=== PATIENT | female | born 1990 ===

== ENCOUNTER 2017-07-19 12:58 | Inpatient (IN) | payer MEDICAID ==
[2017-07-19] MEDS ORDERED: Lactated Ringer's 1,000 ML IV SCH (13:30)
[2017-07-19] MEDS ORDERED: Lidocaine 2% Inj (20ml) ONE (13:37)
[2017-07-19] MEDS ORDERED: Oxytocin 30 UNIT 1,000 ML IV SCH (14:00)
--- NOTE | 2017-07-19 14:08 | DELATT ---
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 no amniocentesis done Del Note Reason for Attend Other: trisomy 18?? Del Note Reason for Attending: Evaluation; Anomaly RAIMUNDO/NICU Del Atten Note Adm
[2017-07-19] MEDS ORDERED: Benzocaine/Menthol 20%-0.5% Topical Spray (60 ml) TOP PRN (14:10)
[2017-07-19 15:03] LABS: ALB/GLOB RATIO 1.1 (1.0-2.1); ALBUMIN 3.7 g/dL (3.5-5.0); ALT/SGPT 15 U/L (9-52); AST/SGOT 20 U/L (14-36); BLOOD UREA NITROGEN 9 mg/dL (7-17); CALCIUM 8.8 mg/dl (8.6-10.4); GFR AFRICAN-AMERICAN > 60; GFR NON-AFRICAN AMERICAN > 60
[2017-07-19 15:05] LABS: BASO % 0.2 % (0.0-2.0); EOS # 0.1 K/uL (0.0-0.7); EOS % 0.8 % (0.0-4.0); LYMPH # 1.5 K/uL (1.0-4.3); LYMPH % 21.5 % (20.0-40.0); MEAN CORPUSCULAR HGB CONC 33.6 g/dL (33.0-37.0); MEAN PLATELET VOLUME 12.6 fL (7.2-11.7); MONO # 0.4 K/uL (0.0-0.8); MONO % 5.7 % (0.0-10.0); NEUT % 71.8 % (50.0-75.0); NRBC % 0.1 % (0.0-2.0); RBC 4.22 Mil/uL (3.80-5.20)
[2017-07-19 15:08] LABS: HEMOGLOBIN 12.3 g/dL (11.0-16.0)
[2017-07-19 15:09] LABS: MEAN CELL VOLUME 86.3 fL (81.0-99.0)
--- NOTE | 2017-07-19 16:05 | OBADHP ---
Datetime: 07/19/2017 13:18 Admit Comment, IP Provider: 27 y/ @ 40.2 wks ga c/o ctx eveyr 5 min sinc elast night with in creaed presure. pt dnies an ylof, vb, +FM. 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: dneis hx of abnormla pa, fibroi, ovairna cyst, STI PMH:Anemia PSH: denies FHX: DM MEDS PNVS A?P @ 40+ wks in active labor admit npo, ivf admission labs cont toco and efm analgeis prn antica Pelvic Type - PN: Adequate Extremities - PN: Normal Abdomen - PN: Normal Back - PN: Normal Breast - PN: Normal Lungs - PN: Normal Heart - PN: Normal Thyroid - PN: Normal Neurologic - PN: Normal HEENT - PN: Normal General - PN: Normal Presentation-Admit: Vertex FHR - Baseline A Provider: 145 Membranes, Provider: Intact Contraction Comments Provider: a 4 min Gestation - Est Wks by US: 40.2 IP Chief Complaint: Uterine contractions NICHD Accel Fetus A IP Provider: [id number] NICHD Decel Fetus A IP Provider: None Dilatation, Provider: 9 Effacement, Provider: 90 Station, Provider: -2 Genitourinary Exam: Normal DTRs - PN: Normal EGA AdmitDate IP: 40.2 IP Adm Impression: Term, intrauterine IP Admit Plan: Admit to unit
--- NOTE | 2017-07-19 16:16 | OBDS ---
DELIVERY PERSONNEL Delivery Doctor: Syd Nolasco MD Scrub Nurse: Stefanie Fraga Hide Inspector And Sorter: Kirsten Arteaga RN MATERNAL INFORMATION Delivery Anesthesia: Local Medications in Delivery: Pitocin 20 units in 1000ml LR; Lidocaine 2% locally by Estimated Blood Loss (ml): 200 Placenta Cultured: Yes Maternal Complications: None RN Comments: Liveborn Baby Boy. 9-9 Provider Comments: pt was fully dilated and pushing, atraumtic, spontnaoud dlieeyr of head ,no nucha l cord noted. atrumatic, spontanoeus delive rof natiro followe by postleydi verdugo followed by delive katty of body. both oral and nasal passages of naa baby were bulb suctione.d ubmiccal cord clamped and c ut. baby hyanded to moather on abodmen. cord blood and cord gases collected and sent x 2. Spontaneous dleiver of intact placenta with membrnes. fundus firm. good hemsotiss, first degree perienal lacera tion noted and repaired with 2-0 chormic. good hemostis, no complicatins live male infant, apgrs 9,9 weight of 7lb 6 ounces peidiatirican prsent for delivery ebl 200 ml LABOR SUMMARY EDC: 07/17/2017 00:00 No. Babies in Womb: 1 Attempted: No Labor Anesthesia: None LABOR INFORMATION Reason for Induction: Not Applicable Onset of Labor: 07/19/2017 04:00 Complete Dilatation: 07/19/2017 13:24 Oxytocin: N/A Group B Beta Strep: Negative (Annotations: 06/24/17) Antibiotics # of Doses: 0 Antibiotics Time of Last Dose: 0 Steroids Given: None Reason Steroids Not Administered: Not Applicable MEMBRANES Membranes Rupture Method: Spontaneous Rupture of Membranes: 07/19/2017 13:13 Length of Rupture (hrs): 0.28 Amniotic Fluid Color: Clear Amniotic Fluid Amount: Moderate Amniotic Fluid Odor: Normal STAGES OF LABOR Stage 1 hrs: 9 Stage 1 min: 24 Stage 2 hrs: 0 Stage 2 min: 6 Stage 3 hrs: 0 Stage 3 min: 3 Total Time in Labor hrs: 9 Total Time in Labor min: 33 VAGINAL DELIVERY Episiotomy: None Laceration Extension: First Degree Laceration Type: Perineal Other Laceration: vaginal packing by Dr. Nolasco Laceration Repair: Yes Initial Vag Sponge Count: 10 Final Vag Sponge Count: 10 Initial Vag Sharps Count: 3 Final Vag Sharps Count: 3 Sponge Count Correct: Yes; Vaginal Sweep Performed Sharps Count Correct: Yes Count Comment: 2 suture needle;1 needle for drawing medication BABY A INFORMATION Delivery Date/Time: 07/19/2017 13:30 Method of Delivery: Vaginal Born in Route : No : N/A Forceps: N/A Vacuum Extraction: N/A Shoulder Dystocia : No SHOULDER DYSTOCIA BABY A Delivery Date/Time: 07/19/2017 13:30 PRESENTATION/POSITION BABY A Presentation: Cephalic Cephalic Presentation: Vertex Vertex Position: Right Occipital Anterior Breech Presentation: N/A PLACENTA INFORMATION BABY A Placenta Delivery Time : 07/19/2017 13:33 Placenta Method of Delivery: Spontaneous Placenta Status: Delivered SCORES BABY A Heart Rate 1 min: >100 bpm Resp Effort 1 min: Good Cry Reflex Irritability 1 min: Cough or Sneeze or Pulls Away Muscle Tone 1 min: Active Motion Color 1 min: Body Novelty, Extremities Blue Resuscitation Effort 1 min: N/A SCORE 1 MIN: 9 Heart Rate 5 min: >100 bpm Resp Effort 5 min: Good Cry Reflex Irritability 5 min: Cough or Sneeze or Pulls Away Muscle Tone 5 min: Active Motion Color 5 min: Body Novelty, Extremities Blue Resuscitation Effort 5 min: N/A SCORE 5 MIN: 9 INFANT INFORMATION BABY A Gestational Age at Delivery: 40.2 Gestational Status: Term Infant Outcome : Liveborn Infant Condition : Stable Sex: Male IDENTIFICATION/MEDS BABY A ID Band Number: [id number] ID Band Location: Left Leg; Left Arm Sensor Applied: Yes Sensor Number: [id number] Sensor Location : Cord Clamp Vitamin K Given : Not Given Erythromycin Given: Not Given WEIGHT/LENGTH BABY A Infant Birthweight (gms): 3360 Infant Weight (lb): 7 Weight (oz): 6 Infant Length Inches: 19.50 Length cms: 49.5 CORD INFORMATION BABY A No. Cord Vessels: 3 Nuchal Cord : N/A Infant Cord pH Baby Arterial: 7.27 (Dr.Patel Welch) Cord Blood Taken: Yes Suction: Mouth; Nose ASSESSMENT BABY A Complications: None Physical Findings at Delivery: Within Normal Limits Infant Respirations: Appears Normal Infant Care By: Transferred To: [facility]
[2017-07-20 07:16] LABS: BASO % 0.3 % (0.0-2.0); EOS # 0.1 K/uL (0.0-0.7); EOS % 1.8 % (0.0-4.0); LYMPH # 1.6 K/uL (1.0-4.3); LYMPH % 24.1 % (20.0-40.0); MEAN CORPUSCULAR HEMOGLOBIN 30.2 pg (27.0-31.0); MEAN CORPUSCULAR HGB CONC 34.9 g/dL (33.0-37.0); MEAN PLATELET VOLUME 11.9 fL (7.2-11.7); MONO # 0.5 K/uL (0.0-0.8); NEUT # 4.5 K/uL (1.8-7.0); NEUT % 66.8 % (50.0-75.0); RBC 3.58 Mil/uL (3.80-5.20); RED CELL DISTRIBUTION WIDTH 17.6 % (11.5-14.5); WHITE BLOOD COUNT 6.7 K/uL (4.8-10.8)
[2017-07-20 07:37] LABS: HEMOGLOBIN 10.8 g/dL (11.0-16.0); MEAN CELL VOLUME 86.6 fL (81.0-99.0)
[2017-07-20] MEDS: Oxycodone/Acetaminophen 5/325 mg Tab PO PRN (22:23)
[2017-07-21 00:23] VITALS: RESP 20
[2017-07-21] MEDS: Oxycodone/Acetaminophen 5/325 mg Tab PO PRN (05:15)
[2017-07-21 07:27] LABS: MEAN CELL VOLUME 87.4 fL (81.0-99.0); MEAN CORPUSCULAR HEMOGLOBIN 29.5 pg (27.0-31.0); MEAN CORPUSCULAR HGB CONC 33.8 g/dL (33.0-37.0); MEAN PLATELET VOLUME 12.1 fL (7.2-11.7); RBC 3.74 Mil/uL (3.80-5.20); RED CELL DISTRIBUTION WIDTH 17.6 % (11.5-14.5); WHITE BLOOD COUNT 6.6 K/uL (4.8-10.8)
--- NOTE | 2017-07-21 08:04 | OBDCSUM ---
Datetime: 07/21/2017 08:02 Discharged to, Provider: Home Follow up at, Provider: obclinic Disch Instr Activity: Normal activity Disch Instr Diet: Regular Discharge Instructions, Provider: Routine instructions given Discharge Diagnosis, Provider: Term Delivered Discharge Time: 07/21/2017 08:02 Follow up in weeks, Provider: 6wk Contraception discussed, Prov: No Disch Activity Restrictions: No sexual activity; Nothing in vagina - [place], tampons, douche Discharge Comment, Provider: tylenol for pain. no nsaids continue pnv perineal care- sitz bath
--- NOTE | 2017-07-21 08:04 | OBPPN ---
Datetime: 07/21/2017 07:58 PP Progress Note Prov: see mpte at 7"53
[2017-07-21] MEDS ORDERED: Docusate-Senna 50 mg-8.6 mg Tab PO PRN (08:26)
[2017-07-21 08:35] VITALS: BP 108/74; PULSE 71; O2SAT 98
[2017-07-21 15:16] VITALS: TEMP 97.5
--- NOTE | 2017-07-22 09:41 | OBPPN ---
Datetime: 07/21/2017 07:53 PP Impression Prov: Normal progression PP Plan Prov: Continue present management PP Progress Note Prov: s: no c/o. denies perineal pain i: thrombocytopenia p: d/c home today tylenol for pain. no nsaids perineal care- sitz bath IP PP Procedures: None Vital Signs Provider PP: Within Normal Limits
--- NOTE | 2017-07-22 09:43 | OBPPN ---
Datetime: 07/21/2017 07:58 PP Pain Prov: Within normal limits Datetime: 07/21/2017 07:53 PP Nausea Prov: Denies PP Flatus Prov: Yes PP Breasts Prov: Normal PP Heart Prov: Normal PP Lungs Prov: Normal PP Abdomen/Uterus Prov: Normal PP Vulva/Perineum Prov: Normal PP CVA Tenderness Prov: Normal PP Extremities Prov: Normal Datetime: 07/21/2017 01:00 PP Progress Note Prov: Called by nurse to eval pt w/ c/o of acute onset of severe perineal pain. s: pt c/o severe pain at site of sutures. o: simple interrupted sutures of chromic along 3-5:00 of vagina p: 2 sutures cut after pt identified these as the source of pain and removed. pt stated the pain w as resolved and the other sutures were not causing pain. pressure applied with gauze and no bleeding afterwards. Datetime: 07/20/2017 07:51 PP BM Prov: No PP Lochia Prov: Normal PP C/S Incision Prov: Not Applicable PP Progress Prov: Normal PP Impression Prov: Normal progression PP Plan Prov: Continue present management Vital Signs Provider PP: Reviewed; Within Normal Limits
== END 2017-07-21 11:15 | disposition home or self-care (01) | DRG 372 ==
LOC: C.EROB 12:58 → C.4D 13:08 → C.4M 18:36
PROVIDERS: ADMIT Obstetrics & Gynecology; ATTEND Obstetrics & Gynecology
PROC: 10E0XZZ Delivery of Products of Conception, External Approach (ICD-10-PCS; principal; 2017-07-19)
PROC: 0HQ9XZZ Repair Perineum Skin, External Approach (ICD-10-PCS; 2017-07-19)
DX: O75.89 Other specified complications of labor and delivery (principal); O98.52 Other viral diseases complicating childbirth; Q91.3 Trisomy 18, unspecified; Z37.0 Single live birth; Z3A.40 40 weeks gestation of pregnancy; O70.0 First degree perineal laceration during delivery